=== PATIENT | male | born 1940 | race Caucasian/White ===

== ENCOUNTER → 2018-08-16 | Outpatient (CLI) | payer OTHER | END | disposition home or self-care (01) | LOC: CFH 12:03 | PROVIDERS: ATTEND Internal Medicine Cardiovascular Disease | DX: I25.10 Atherosclerotic heart disease of native coronary artery without angina pectoris (principal); I10 Essential (primary) hypertension | CPT/HCPCS: 78452; 93017; A9502 ==

== ENCOUNTER 2019-01-16 14:41 | Outpatient (CLI) | END 2019-01-16 23:59 | disposition home or self-care (01) | LOC: CVU 14:41 | PROVIDERS: ATTEND Internal Medicine Cardiovascular Disease | DX: I82.512 Chronic embolism and thrombosis of left femoral vein (principal) | CPT/HCPCS: 93971 ==

== ENCOUNTER → 2019-05-01 | Outpatient (CLI) | payer MEDICARE | END | disposition home or self-care (01) | LOC: CVU 10:28 | PROVIDERS: ATTEND Internal Medicine Cardiovascular Disease | DX: I82.432 Acute embolism and thrombosis of left popliteal vein (principal); I82.492 Acute embolism and thrombosis of other specified deep vein of left lower extremity | CPT/HCPCS: 93971 ==